=== PATIENT | female | born 1990 | race Hispanic/Latino ===

== ENCOUNTER 2017-06-15 05:37 | Emergency (ER) | payer OTHER ==
[2017-06-15 06:35] LABS: #Eosinphils 0.2 thou/uL (0.0-0.7); #Monocytes 0.4 thou/uL (0.11-0.59); #Neutrophils 5.8 thou/uL (1.40-6.50); %Basophils 0.6 % (0.0-1.0); %Eosinophils 2.2 % (0.0-10.0); %Lymphocytes 23.8 % (21.0-51.0); %Monocytes 4.4 % (0.0-10.0); Hemoglobin 10.5 g/dL (12.0-16.0); Mean Corpuscular HGB CONC 33.4 g/dL (32.0-36.0); Mean Corpuscular Hemoglobin 28.7 pg (27.0-31.0); Mean Corpuscular Volume 85.8 fl (81.0-99.0); Mean Platelet Volume 8.2 fL (7.4-10.4); Platelet Count 177 thou/uL (130-400); RBC Distribution Width 13.2 % (11.5-14.5); Red Blood Cell (RBC) Count 3.66 mill/uL (4.20-5.40); White Blood Cell (WBC) Count 8.3 thou/uL (4.8-10.8)
[2017-06-15 06:36] LABS: Bilirubin Negative (Negative); Blood, Urine Large (Negative); Clarity CLOUDY (Clear); Glucose, Urine (Dipstick) Negative (Negative); Leukocyte Negative (Negative); Nitrite Negative (Negative); Protein, Urine (Dipstick) Negative (Neg-Trace); Specific Gravity, Urine 1.029 (1.002-1.036); pH, Urine 6.5 (5.0-9.0)
[2017-06-15 06:39] LABS: Bacteria/HPF 1+ HPF (None Seen); Hyaline Casts/LPF 0-3 HYALINE CAST LPF (0-3 Hyaline); WBC/HPF 0-3 HPF (0-3)
--- NOTE | 2017-06-15 11:23 | ULT ---
PRELIMINARY REPORT/[facility]/EMERGENCY AFTER-HOURS PROCEDURE: EXAM: US First Trimester, Transabdominal CLINICAL HISTORY: 26 years old, female; Signs and symptoms; Lmp or gestational age (in weeks): 10wks; Other: Vag spotti ng; TECHNIQUE: Real-time transabdominal obstetrical ultrasound of the maternal pelvis and a first trimester pregnanc y with image documentation. COMPARISON: No relevant prior studies available. FINDINGS: Gestation: There is a single, live intrauterine gestation. The estimated gestational age is 10 weeks and 5 days. The estimated date of delivery is 01/06/2018. The heart rate is 168-149 beats per mi nute. Placenta/amniotic fluid: There is bilateral subchorionic hemorrhage, the largest collection measuring 3.7 x 1.9 x 2.1 cm. Uterus/cervix: Unremarkable. No myometrial mass. Ovaries: Unremarkable. No mass. Free fluid: No free fluid. IMPRESSION: 1. There is a single, live intrauterine gestation. The estimated gestational age is 10 weeks and 5 da ys. The estimated date of delivery is 01/06/2018. 2. There is bilateral subchorionic hemorrhage, the largest collection measuring 3.7 x 1.9 x 2.1 cm. This interpretation was based upon the receipt of 33 image(s). Thank you for allowing us to participate in the care of your patient. Dictated and Authenticated by: Kash Vanegas DO 06/15/2017 7:49 AM Central Time ([place] & [place]) FINAL REPORT ULTRASOUND EARLY OBSTETRICAL: DATE: 06/15/17. TIME: 6:32 a.m. HISTORY: A 26-year-old female with mild vaginal bleeding. TECHNIQUE: Transabdominal transducer used to evaluate intrapelvic contents. Pulsed Doppler with color flow and spectral analysis of ovaries. FINDINGS: Intrauterine gestational sac. [place]-rump length of pole is 4.0 cm, corresponding to 10 w 6 d. heart rate 149 b.p.m. There are 2 very irregularly shaped, hypoechoic lesions in the myometrium, close to the gestational s ac, one to the right and one to the left. The one on the right near the fundus is approximately 2 x 3.5 x 1.5 cm. The one on the left is approximately 3 x 1.5 x 1.5 cm. Their etiologies are unknown. They do not have the typical appearance for subchorionic hemorrhages. Further, the myometrial echogenicity is diffusely heterogeneous, with irregularly shaped hypoechoic s tripes, questionable for small amounts of subchorionic hemorrhage. No free fluid in the cul-de-sac. Uterus: 12.5 x 8 x 10 cm. Right ovary: 3.8 x 2 x 3.5 cm. Left ovary: 3.5 x 2 x 2.8 cm. No corpus luteal cyst identified. Blood flow demonstrated in both ovaries by Doppler. IMPRESSION: 1. Live first trimester intrauterine gestation estimated to be 10 weeks 5 days gestational age, with estimated date of confinement of 01/06/18. 2. Heterogeneous echogenicity of the myometrium, including 2 focal hypoechoic mass-like lesions, of uncertain etiology. 3. Followup is recommended. POS: ETHAN
== END 2017-06-15 07:39 | disposition home or self-care (01) ==
LOC: ERS 05:37
DX: O20.0 Threatened abortion (principal); Z3A.10 10 weeks gestation of pregnancy
CPT/HCPCS: 36415; 76856; 81003; 81015; 84702; 85025; 86900; 86901; 93976

== ENCOUNTER 2017-12-30 09:23 | Inpatient (IN) | payer OTHER ==
[2017-12-30] MEDS: Lactated Ringer's 1,000 ML IV SCH ×3 (09:45→23:12)
[2017-12-30 10:06] VITALS: BMI 38.2
[2017-12-30] MEDS ORDERED: Promethazine HCl 25 MG/ML VIAL IM PRN ×3 (10:18→16:37)
[2017-12-30] MEDS ORDERED: Ondansetron HCl/PF 4 MG/2 ML Vial IVP PRN ×4 (10:18→16:37)
[2017-12-30] MEDS ORDERED: Bicitra 30 ML UDCUP PO SCH (10:30)
[2017-12-30] MEDS ORDERED: CEFAZOLIN/Water 2 GM/20 ML SYRINGE SLOW IVP SCH (10:30)
[2017-12-30 10:33] LABS: Hemoglobin 11.1 g/dL (12.0-16.0); Mean Corpuscular HGB CONC 33.6 g/dL (32.0-36.0); Mean Corpuscular Hemoglobin 29.7 pg (27.0-31.0); Mean Corpuscular Volume 88.4 fL (78.0-98.0); Mean Platelet Volume 8.1 fL (7.4-10.4); Platelet Count 186 thou/uL (130-400); RBC Distribution Width 12.3 % (11.5-14.5); Red Blood Cell (RBC) Count 3.75 mill/uL (4.20-5.40); White Blood Cell (WBC) Count 8.2 thou/uL (4.8-10.8)
[2017-12-30 11:11] LABS: HBSAg Index 0.17 S/CO (0-0.99); Hep B Surf Ag Non-Reactive S/CO (NonReactive); Syphilis Antibody Nonreactive (Nonreactive); Syphilis Antibody Index 0.03 S/CO (<1.00 Non-Reactive)
[2017-12-30] MEDS ORDERED: Morphine PF 1 MG/ML SYR ONE (11:32)
[2017-12-30] MEDS ORDERED: Oxytocin 10 UNITS/ML VIAL ONE (11:33)
[2017-12-30] MEDS ORDERED: Lidocaine 1% (PF) 30 ML VIAL ONE (11:33)
[2017-12-30] MEDS ORDERED: PHENYLEPHRINE-NS 100 MCG/ML 10 ML SYRINGE ONE ×2 (11:34→12:59)
[2017-12-30] MEDS ORDERED: Ondansetron HCl/PF 4 MG/2 ML Vial ONE ×2 (11:34→13:14)
[2017-12-30] MEDS ORDERED: Ketorolac Tromethamine 30 MG/ML VIAL ONE ×2 (11:34→11:38)
[2017-12-30] MEDS ORDERED: Bupivacaine 0.75% W/DEXTROSE 8.25% 2 ML AMP ONE (11:35)
[2017-12-30] MEDS ORDERED: Bicitra 30 ML UDCUP ONE (11:52)
[2017-12-30] MEDS ORDERED: Promethazine HCl 25 MG SUPP PR PRN (12:42)
[2017-12-30] MEDS ORDERED: Eucerin (Mineral Oil/Petrolatum,White) 30 gm Jar TOP PRN (12:42)
[2017-12-30] MEDS ORDERED: Naloxone HCl 0.4 mg/ml Vial IV PRN (12:42)
[2017-12-30] MEDS ORDERED: Ketorolac Tromethamine 30 MG/ML VIAL IVP PRN (12:42)
[2017-12-30] MEDS ORDERED: Meperidine HCl/PF 25 MG/ML VIAL SLOW IVP PRN (12:42)
[2017-12-30] MEDS ORDERED: diphenhydrAMINE 50 MG/ML VIAL IVP PRN (12:42)
[2017-12-30] MEDS ORDERED: HYDROmorphone 2 MG/ML VIAL SLOW IVP PRN (12:42)
[2017-12-30] MEDS ORDERED: Naloxone HCl 0.4 mg/ml Vial IVP PRN ×2 (12:42)
[2017-12-30] MEDS ORDERED: Ketorolac Tromethamine 30 MG/ML VIAL IVP SCH (12:45)
[2017-12-30] MEDS ORDERED: Communication Order-Pharmacy FS SCH (12:45)
[2017-12-30] MEDS ORDERED: Methylergonovine 0.2 MG/ML VIAL ONE (13:01)
[2017-12-30] MEDS ORDERED: Zolpidem Tartrate 5 MG TAB PO PRN (16:37)
[2017-12-30] MEDS ORDERED: Adacel (T-DAP) 0.5 ML VIAL IM ONE (16:37)
[2017-12-30] MEDS ORDERED: Varicella virus, LIVE 0.5 ML VIAL SC ONE (16:37)
[2017-12-30] MEDS ORDERED: Bisacodyl 10 MG SUPP PR PRN (16:37)
[2017-12-30] MEDS ORDERED: Lanolin Ointment 7 GM TUBE TOP PRN (16:37)
[2017-12-30] MEDS ORDERED: Methylergonovine 0.2 MG/ML VIAL IM PRN (16:37)
[2017-12-30] MEDS ORDERED: HYDROcodone/Acetaminophen 5/325 mg Tablet PO PRN (16:37)
[2017-12-30] MEDS ORDERED: NS / Oxytocin 40 units/1000ml 1,000 ML IV SCH (16:37)
[2017-12-30] MEDS ORDERED: diphenhydrAMINE 25 MG CAP PO PRN (16:37)
[2017-12-30] MEDS ORDERED: Measles/Mumps/Rubella 10 MCG/0.5 ML VIAL SC ONE (16:37)
[2017-12-30] MEDS: Docusate Calcium (SURFAK) 240 MG CAP PO SCH (21:28)
[2017-12-31 05:40] LABS: Hemoglobin 8.2 g/dL (12.0-16.0); Mean Corpuscular HGB CONC 33.1 g/dL (32.0-36.0); Mean Corpuscular Hemoglobin 29.7 pg (27.0-31.0); Mean Corpuscular Volume 89.9 fL (78.0-98.0); Mean Platelet Volume 8.1 fL (7.4-10.4); Platelet Count 159 thou/uL (130-400); RBC Distribution Width 12.3 % (11.5-14.5); Red Blood Cell (RBC) Count 2.76 mill/uL (4.20-5.40); White Blood Cell (WBC) Count 10.4 thou/uL (4.8-10.8)
[2017-12-31] MEDS: Simethicone Chewable 80 MG TAB PO PRN ×2 (08:20→16:53)
[2017-12-31] MEDS: Prenatal Vitamin 1 TAB PO SCH (08:20)
[2017-12-31] MEDS: Docusate Calcium (SURFAK) 240 MG CAP PO SCH ×2 (08:20→21:20)
[2017-12-31] MEDS: HYDROcodone/Acetaminophen 5/325 mg Tablet PO PRN ×4 (08:21→21:23)
[2017-12-31] MEDS: Ibuprofen 800 MG TAB PO SCH ×2 (13:31→21:20)
--- NOTE | 2017-12-31 18:56 | PDOC.PP ---
Post Progress Note Post Day #: 1 Subjective: Patient is doing very well, tolerating regular diet. PO intake tolerated: yes Flatus: yes Ambulation: yes Vital Signs (12 hours) Temp Pulse Resp BP Pulse Ox 12/31/17 16:19 99.2 F 101 H 18 120/57 L 96 12/31/17 11:05 98.4 F 102 H 18 116/58 L 12/31/17 07:55 98.5 F 95 20 121/59 L 98 Weight Weight 230 lb - Physical Examination General: NAD Cardiovascular: no m/r/g Respiratory: clear to auscultation bilaterally Abdominal: + bowel sounds Extremities: negative homans (B) Skin: CS incision dry & intact Neurological: no gross focal deficits Psychiatric: A&Ox3 Result Diagrams: 12/31/17 05:02 Additional Labs: Post Labs Blood Type O POSITIVE 12/30/17 09:37 Hep Bs Antigen Non-Reactive S/CO (NonReactive) 12/30/17 09:37 - Assessment/Plan Patient doing very well, and we will likely DC to home tomorrow.
--- NOTE | 2017-12-31 18:59 | PDOC.LDHP ---
Labor and Delivery H&P Chief complaint: contractions, scheduled section Current gestational age (weeks): 39 Due date: 01/06/18 Dating criteria: last menstrual period Grav: 4 Para: 2 Current complications: none Abnormal US findings: No Past Medical History: Molar previously, D&C Current medications: none Previous surgical history: low tranverse CS, dilation and curettage Allergies/Adverse Reactions: Allergies Allergy/AdvReac Type Severity Reaction Status Date / Time No Known Allergies Allergy Verified 12/30/17 10:07 - Physical Exam Vital signs reviewed and normal: yes General: NAD Heart: RRR Lungs: CTAB Abdomen: gravid Extremeties: no edema FHT: category 1 - Assessment L&D Assessment: scheduled repeat section - Plan Plan: admit to L&D, to OR for section
[2017-12-31] MEDS ORDERED: Ibuprofen 800 MG TAB PO SCH (22:00)
[2018-01-01] MEDS: HYDROcodone/Acetaminophen 5/325 mg Tablet PO PRN ×3 (01:14→09:48)
--- NOTE | 2018-01-01 02:39 | OP ---
DATE OF SERVICE: 12/30/2017 PREOPERATIVE DIAGNOSIS: Intrauterine at 39 weeks and 0 days for a repeat third se ction at term. POSTOPERATIVE DIAGNOSIS: Intrauterine at 39 weeks and 0 days for a repeat third s ection at term. PROCEDURE: Repeat low transverse section. FINDINGS: Viable male infant weighing 3892 grams or 8 pounds 9 ounces with Apgars of 8 and 9. QUANTITATIVE BLOOD LOSS: 1395 mL. COMPLICATIONS: Intraoperative hemorrhage. DETAILS OF THE PROCEDURE: The patient was consented and taken back to the operating room where spina l anesthesia was found to be adequate. She was then prepped and draped in the normal sterile fashion . A time out was performed by the entire operative team. The incision was then marked with a marking pen tested using sharp pickups. An incision was then made with a scalpel. The incision was carried through the adipose tissue down to the underlying rectus fascia using both sharp dissection as well as cautery. Once the fascia was identified, it was incised in the midline and then the fascial incis ion was carried through in both lateral directions using sharp as well as cautery dissection techniqu es. Next, the superior aspect of the rectus fascia was grasped with 2 Neri clamps which was tented up and the rectus muscles were dissected off using blunt dissection as well as cautery dissection. Similarly, the inferior aspect of the fascial incision was grasped with 2 Neri clamps, tented up an d the rectus muscles were dissected off bluntly as well as sharply. Next, the rectus muscles were se parated in the midline and the peritoneum identified. The peritoneum was then carefully grasped with two hemostats and entered sharply. The peritoneal incision was extended superiorly and inferiorly a nd bladder blade was placed in the lower abdomen. At this point, the uterus was identified and the b ladder flap was then developed using pickups with teeth as well as Metzenbaum scissors in both latera l directions. The bladder flap was then dissected downwards using the refinery operator helper's finger as well as M etzenbaum scissors. The bladder blade was replaced. The lower uterine segment was then identified a nd entered sharply using a clean scalpel. The uterine incision was then dissected downwards until th in layer of muscle remained and this was entered bluntly using a hemostat to avoid any injury to the baby. The uterine incision was then stretched using two fingers in both lateral directions. An amniotomy was performed artificially using a hemostat and the baby was delivered using fundal pres sure in a gentle fashion. Once out, the baby's mouth and nose were bulb suctioned, cord clamped and cut, and the baby was handed to waiting attendants. Next, the uterus was exteriorized, cleared of al l clots and debris and the uterine incision was repaired with #1 Monocryl in a running locking fashio n. A second suture of the same type was used to obtain complete hemostasis at the uterine incision. The bladder flap was reapproximated using 3-0 Monocryl. Next, patient's left and right adnexa were inspected and appeared to be within normal limits. The posterior cul-de-sac was blotted dry and hemo stasis assured. One more look at the uterine incision demonstrated hemostasis. Next, the uterus was replaced back within the abdomen. The peritoneum was reapproximated using 2-0 Monocryl without diff iculty. The rectus muscles were then allowed to come back together and 0 chromic was used to aid in reapproximation of the muscle as necessary. The rectus fascia was then reapproximated in a running f ashion using 0 Vicryl suture. The adipose tissue was then examined and appeared to be well approxima aurea without any obvious separations. Finally, the skin was reapproximated with 3-0 Monocryl on a [place] th needle without difficulty and Dermabond adhesive was applied to the skin. Once the glue was dry, the drapes were removed and the patient was transferred to an ambulatory bed where she was taken to [facility] awake and in stable condition. Sponge, lap, and needle counts were correct x3. Following initiation of Pitocin, the uterus was boggy with above average bleeding. We also added one dose of Methergine intramuscularly and addition of Pitocin to achieve hemostasis and to help the evens becka firm up.
[2018-01-01] MEDS: Ibuprofen 800 MG TAB PO SCH (05:20)
[2018-01-01 08:15] VITALS: BP 115/64; TEMP 98.5
[2018-01-01] MEDS: Docusate Calcium (SURFAK) 240 MG CAP PO SCH (08:33)
[2018-01-01] MEDS: Prenatal Vitamin 1 TAB PO SCH (08:33)
== END 2018-01-01 11:00 | disposition home or self-care (01) | DRG 766 ==
LOC: L&D 09:23 → 3SW 16:09 → EDSTATUS 01-06 14:06
PROVIDERS: ADMIT Obstetrics & Gynecology; ATTEND Obstetrics & Gynecology
PROC: 10D00Z1 Extraction of Products of Conception, Low, Open Approach (ICD-10-PCS; principal; 2017-12-30)
DX: O34.211 Maternal care for low transverse scar from previous cesarean delivery (principal); Z3A.39 39 weeks gestation of pregnancy; Z37.0 Single live birth; O67.8 Other intrapartum hemorrhage
CPT/HCPCS: 36415; 51702; 85027; 86780; 86850; 86900; 86901; 87340; J1885; J2001; J2210; J2274; J2405; J2590; J3490

== ENCOUNTER 2020-01-22 10:52 | Outpatient (CLI) | payer OTHER ==
--- NOTE | 2020-01-22 12:14 | ULT ---
ULTRASOUND OBSTETRICAL COMPLETE: DATE: 01/22/2020 HISTORY: 29-year-old female. ICD-10: "O09.92, supervision of high-risk , unspecified, second trimester" FINDINGS: Maternal adnexa: Not visualized. number: chavez lie: Vertex Maternal cervix: 3.5 cm. Closed. Placenta: Posterior. No placenta previa. Amniotic fluid volume: LINDA = 11.5 cm heart rate: 144 bpm The following anatomy is visualized, with no evidence of anomalies: Head, cerebellum, lateral ventricles, four-chamber heart, stomach, kidneys, cord insertion, bladder, cervical spine, thoracic spine, lumbar spine, sacrum, nose and lips, upper extremities, lower extremities, and three-vessel cord. biometry: Biparietal diameter (BPD): 5.0 cm (21 w 1 d Head circumference (HC): 19.4 cm 21 w 5 d Abdominal circumference (AC): 16.3 cm 21 w 3 d Femur length (FL): 3.5 cm (21 w 2 d Average ultrasound age (AUA): 21 w 3 d Estimated date of delivery (TEODOR[place]): 05/31/2020 Estimated weight (EFW): 414 g +/- 61 g IMPRESSION: 1) Live 2nd trimester intrauterine gestation. 2) Estimated gestational age of 21 weeks, 3 days 3) cephalic lie. 4) no anatomic abnormality identified.
== END 2020-01-22 10:53 | disposition home or self-care (01) ==
LOC: BICULT 10:52
PROVIDERS: ATTEND Family Medicine
DX: O09.92 Supervision of high risk pregnancy, unspecified, second trimester (principal); Z3A.21 21 weeks gestation of pregnancy
CPT/HCPCS: 76805